=== PATIENT | male | born 1940 | race Caucasian/White ===

== ENCOUNTER 2018-10-05 14:53 | Inpatient (IN) ==
[2018-10-05] MEDS ORDERED: ZOFRAN IV PRN (16:12)
--- NOTE | 2018-10-05 16:16 | EKG Report ---
Test Performed on : 10/05/2018 4:10:36 PM Test Reason : Dehydration, Syncope Blood Pressure : / mmHG Vent. Rate : 054 BPM Atrial Rate : 054 BPM P-R Int : 186 ms QRS Dur : 090 ms QT Int : 408 ms P-R-T Axes : 034 070 081 degrees QTc Int : 386 ms Sinus bradycardia. Otherwise normal ECG No previous ECGs available Confirmed by Alix REARDON, Martín Horan ([id number]) on 10/05/2018 4:20:46 PM
[2018-10-05] MEDS: D5 NS + KCL 20 MEQ 1,000 ML IV SCH (16:49)
[2018-10-05] MEDS: ROCEPHIN 1 GM in NS 50 ML IV SCH (16:49)
[2018-10-05 17:11] LABS: BASO# 0.03 X1000 (0.0-0.2); BASO% 0.4 % (0.0-0.8); EOS# 0.57 X1000 (0.0-0.7); EOS% 8.1 % (0.0-10.0); HEMATOCRIT 41.6 % (42.0-52.0); HEMOGLOBIN 13.8 g/dL (14.0-18.0); LYMPH# 2.14 X1000 (1.2-3.4); LYMPH% 30.6 % (20.5-51.1); MCH 29.6 PG (27-31); MCHC 33.2 g/dL (33-37); MCV 89.3 FL (81-99); MONO# 0.82 X1000 (0.11-0.59); MONO% 11.7 % (1.7-9.3); MPV 10.7 FL (7.4-10.4); NEUT# 3.44 X1000 (1.4-6.5); NEUT% 49.2 % (42.2-75.2); PLT 201 X1000 (130-400); RBC 4.66 XMIL (4.7-6.1); RDW 14.9 % (11.5-14.5)
[2018-10-05 17:25] LABS: ALLEN TEST YES; BLOOD TYPE ARTERIAL; HCO3-(ACT) 25.6 mmoll (20.0-26.0); O2(CT) 17.7 mL/dL (15.0-23.0); PCO2(98.6) 45 mmHg (35-45); PO2(98.6) 77 mmHg (60-100); SAMPLE BLOOD; SAO2 100.2 % (95.0-100.0); THB 13.2 g/dL (11.5-17.4); pH(98.6) 7.38 (7.35-7.45)
[2018-10-05 17:28] LABS: MODALITY ROOM AIR
[2018-10-05 17:38] LABS: ALB/GLOB RATIO 1.3; ALBUMIN 4.1 g/dL (3.5-5.0); CALCIUM 9.6 mg/dL (8.8-10.2); CREATININE 1.3 mg/dL (0.7-1.2); POTASSIUM 4.5 mmol/L (3.5-5.1); TOTAL BILIRUBIN 0.34 mg/dL (0.20-1.00); TOTAL PROTEIN 7.2 g/dL (6.3-8.3)
--- NOTE | 2018-10-05 18:05 | Diag Imaging Result Doc PS360 ---
CHEST-2 VIEWS - 10/05/2018 INDICATION: Dehydration, Syncope COMPARISON: 02/01/2018 FINDINGS: There is some subtle reticulonodular infiltrate in the anterior right upper lobe. No pneumothorax or pleural effusion. Heart size is normal. IMPRESSION: Atypical pneumonia in the right upper lobe. Electronically signed by Keenan Stroud 10/05/2018 6:03 PM
[2018-10-05] MEDS: NORCO-7.5 PO PRN (22:35)
[2018-10-06] MEDS: D5 NS + KCL 20 MEQ 1,000 ML IV SCH ×3 (06:12→18:41)
--- NOTE | 2018-10-06 12:20 | PROGRESS NOTE ---
DATE: 10/06/2018 SUBJECTIVE: Mr. Piper is doing somewhat better. This morning his dehydration is better. His lungs reveal some congestion especially on the right side. He has a atypical pneumonia on the right apex. He is very weak today. Overall condition is stable. We will continue the current management. cc: Storm Black MD
--- NOTE | 2018-10-06 14:17 | HISTORY AND PHYSICAL ---
HISTORY OF PRESENT ILLNESS: Mr. Piper who is a 78-year-old white gentleman, comes to the office with extreme degree of weakness, persistent cough, and low-grade fever. He was dehydrated. According to the daughter, he was so weak that he stayed in the car for several hours without informing anyone and could not get out of the car. He was admitted with the diagnosis of dehydration, possible pneumonia. He has a known case of COPD, has been a chronic smoker for many years. He smokes about 3 to 5 cigarettes per day now. Besides this he has severe degenerative disk disease in the lumbar spine as well as cervical spine. Has history of hypertension. 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 He had 3 back surgeries in the lumbar area. Besides this he had TURP, appendectomy done. SOCIAL HISTORY: Mr. Piper does not drink. He smokes as mentioned. ALLERGIES: He is allergic to aspirin. REVIEW OF SYSTEMS: He is very weak. He has a loss of appetite, mild nausea. No diarrhea. Mild cough without chest pain. Some shortness of breath. PHYSICAL EXAMINATION: Patient is alert, very weak. VITAL SIGNS: Reveal temperature normal, pulse 63 per minute, respiratory rate 13 per minute, blood pressure 117/64. HEENT: Head normocephalic. Pupils PERRLA. Fundus examination on examination not done. NECK: Supple. JVP normal. ENT: Examination unremarkable. 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 There is no evidence of lymphadenopathy, thyroid enlargement, pedal edema, calf tenderness, anemia, cyanosis or clubbing. Pedal pulses feeble. He has bruising on his extremities and has some dehydration with loss of skin turgor and dryness of mucous membranes. BREASTS: Breast exam normal. CHEST: Normal inspection. LUNGS: Revealed rales in the mid zone on both sides. PMI in the normal position. HEART: Sounds normal. No murmur, gallop or rub noted. ABDOMEN: Nondistended hernial orifices normal. Revealed the scar from previous surgery. No guarding, rigidity, free fluid, masses, or organomegaly. Bowel sounds normal. RECTAL: Deferred. DIGITAL MEDIA INTERN: Higher functions normal. Cranial nerves normal. Motor and sensory system examination reveals muscle wasting.Deep tendon reflexes are sluggish. Plantars downgoing. Skull and spine examination normal for age. No cerebellar signs or signs of meningeal irritation. LOCOMOTOR SYSTEM AND SKIN: Exam unremarkable. IMPRESSION: 1. Dehydration. 2. Possible pneumonia. 3. Generalized malnutrition. 4. Persistent nausea. PLAN: We will start the IV fluids, get the appropriate lab work and get IV antibiotics started. cc: Storm Black MD MTDD
[2018-10-06] MEDS: ROCEPHIN 1 GM in NS 50 ML IV SCH (16:38)
[2018-10-07] MEDS: D5 NS + KCL 20 MEQ 1,000 ML IV SCH ×3 (03:05→16:36)
[2018-10-07] MEDS: NORCO-7.5 PO PRN ×2 (13:11→20:50)
[2018-10-07] MEDS ORDERED: SODIUM CHLORIDE 0.9% INJ SCH (15:15)
[2018-10-07] MEDS: ROCEPHIN 1 GM in NS 50 ML IV SCH (16:37)
[2018-10-07] MEDS: LOVENOX SUBQ SCH (16:37)
[2018-10-07] MEDS: PEPCID IV SCH (16:37)
[2018-10-07] MEDS: ZITHROMAX 500 MG/NS 500 MG/250 ML IVPB IV SCH (16:38)
--- NOTE | 2018-10-07 17:01 | PROGRESS NOTE ---
DATE: 10/07/2018 SUBJECTIVE: This is the progress note for Dr. Blcak. A 78-year-old white gentleman admitted to the hospital on 10/06/2018 for dehydration, COPD exacerbation, malnutrition. The patient is doing very well. No complaints. REVIEW OF SYSTEMS: None reported. PAST MEDICAL HISTORY: Reviewed. PAST SURGICAL HISTORY: Reviewed. MEDICATIONS: Reviewed. ALLERGIES: Aspirin. PHYSICAL EXAMINATION: General: He is temperature is 97.6, pulse is 73, blood pressure 128/72. 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 Neck: Supple. Chest: Barrel-shaped. Poor air entry. No wheezing. No crackles. Heart: Sounds are regular. Abdomen: Belly is soft, nontender. Extremities: No peripheral edema. Neurologic: No obvious deficits noted. INVESTIGATIONS: CBC: White cell count 7, hematocrit 41, platelets 201,000. ABG: pH is 7.38, pCO2 45, PO2 77, carboxyhemoglobin is 5.2. SMA-7 Sodium 136, BUN 20, creatinine 1.3. Liver function test was normal. EKG sinus bradycardia. Chest x-ray, atypical pneumonia in the right upper lobe with COPD changes. ASSESSMENT AND PLAN: 1. Acute chronic obstructive pulmonary disease exacerbation. Oxygen. Reconcile home medicines. Currently, he is getting IV ceftriaxone. We will add Zithromax. 2. Dehydration, better. Decrease IV fluids 80 mL/hour. Repeat the labs in the morning. 3. Deep venous thrombosis and gastrointestinal prophylaxis as per order sheet, and repeat the labs in the morning. LEVEL OF DOCUMENTATION: 35 minutes. cc: MD Storm Ramsey MD
[2018-10-07] MEDS: REQUIP PO SCH (21:00)
[2018-10-08] MEDS: D5 NS + KCL 20 MEQ 1,000 ML IV SCH ×3 (03:00→17:13)
[2018-10-08] MEDS: PEPCID IV SCH ×2 (03:34→15:39)
[2018-10-08] MEDS: REQUIP PO SCH ×2 (05:33→20:46)
[2018-10-08] MEDS: NORCO-7.5 PO PRN ×2 (05:55→15:14)
[2018-10-08 07:11] LABS: BASO# 0.02 X1000 (0.0-0.2); BASO% 0.3 % (0.0-0.8); EOS# 0.52 X1000 (0.0-0.7); EOS% 8.8 % (0.0-10.0); HEMATOCRIT 35.1 % (42.0-52.0); HEMOGLOBIN 11.9 g/dL (14.0-18.0); LYMPH# 2.18 X1000 (1.2-3.4); LYMPH% 36.8 % (20.5-51.1); MCHC 33.9 g/dL (33-37); MCV 88.4 FL (81-99); MONO# 0.81 X1000 (0.11-0.59); MONO% 13.7 % (1.7-9.3); MPV 10.3 FL (7.4-10.4); NEUT# 2.39 X1000 (1.4-6.5); NEUT% 40.4 % (42.2-75.2); PLT 163 X1000 (130-400); RBC 3.97 XMIL (4.7-6.1); RDW 14.6 % (11.5-14.5); WBC 5.92 X1000 (4.8-10.8)
[2018-10-08 07:28] LABS: CALCIUM 8.3 mg/dL (8.8-10.2); CREATININE 1.2 mg/dL (0.7-1.2); POTASSIUM 4.5 mmol/L (3.5-5.1)
[2018-10-08] MEDS: ZITHROMAX 500 MG/NS 500 MG/250 ML IVPB IV SCH (15:15)
[2018-10-08] MEDS: LOVENOX SUBQ SCH (15:39)
--- NOTE | 2018-10-08 17:02 | PROGRESS NOTE ---
DATE: 10/08/2018 SUBJECTIVE: The patient is doing very well, anxious to go home. Admitted for COPD. The chest x- ray showed atypical pneumonia. No chest pain. REVIEW OF SYSTEMS: None reported. 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 He is not in respiratory distress. Scattered wheezing. Distant heart sounds. Belly is soft. Nonfocal. DIAGNOSTIC STUDIES: CBC: White cell count 5.9, hematocrit 35, platelets 163,000. Sodium 140, potassium 4.5, chloride 111, BUN 14, creatinine 1.2, glucose is 93. Blood cultures are negative. ASSESSMENT AND PLAN: 1. Chronic obstructive pulmonary disease exacerbation with atypical pneumonia in the right side. Continue IV ceftriaxone and Zithromax. 2. Intravenous fluids. 3. Deep vein thrombosis and gastrointestinal prophylaxes. 4. Reconcile home medications. 5. Repeat the chest x-ray in the morning. 6. Continue present treatment and followup LEVEL OF DOCUMENTATION: 25 minutes. cc: MD Storm Ramsey MD
[2018-10-08] MEDS: ROCEPHIN 1 GM in NS 50 ML IV SCH (18:23)
[2018-10-09] MEDS: D5 NS + KCL 20 MEQ 1,000 ML IV SCH ×2 (04:07→16:35)
[2018-10-09] MEDS: PEPCID IV SCH ×2 (04:07→15:45)
[2018-10-09] MEDS: NORCO-7.5 PO PRN ×2 (06:12→20:55)
[2018-10-09 08:01] LABS: BASO# 0.03 X1000 (0.0-0.2); BASO% 0.4 % (0.0-0.8); EOS# 0.59 X1000 (0.0-0.7); EOS% 8.3 % (0.0-10.0); HEMATOCRIT 38.6 % (42.0-52.0); HEMOGLOBIN 12.9 g/dL (14.0-18.0); LYMPH# 2.01 X1000 (1.2-3.4); LYMPH% 28.2 % (20.5-51.1); MCH 29.3 PG (27-31); MCHC 33.4 g/dL (33-37); MCV 87.7 FL (81-99); MONO# 0.81 X1000 (0.11-0.59); MONO% 11.4 % (1.7-9.3); MPV 10.6 FL (7.4-10.4); NEUT# 3.69 X1000 (1.4-6.5); NEUT% 51.7 % (42.2-75.2); PLT 171 X1000 (130-400); RDW 14.3 % (11.5-14.5); WBC 7.13 X1000 (4.8-10.8)
--- NOTE | 2018-10-09 09:10 | PROGRESS NOTE ---
DATE: 10/09/2018 SUBJECTIVE: Mr. Piper is improving. His pulmonary congestion is better. He had a chest x-ray done today. He is on IV Rocephin and azithromycin. Will continue with the current management. cc: Storm Black MD
--- NOTE | 2018-10-09 09:45 | Diag Imaging Result Doc PS360 ---
EXAM: CHEST-2 VIEWS HISTORY: hypoxia TECHNIQUE: Chest two views. Exam completed at 9:40 AM COMPARISON: 10/05/2018 FINDINGS: The lungs are hyperexpanded. No cardiomegaly. The pulmonary vessels are small. No pleural effusions. Mild increased interstitial markings in the mid right lung. No consolidation. IMPRESSION: Stable chest. Electronically signed by Polo Palencia 10/09/2018 9:42 AM
[2018-10-09] MEDS: LOVENOX SUBQ SCH (15:39)
[2018-10-09] MEDS: ZITHROMAX 500 MG/NS 500 MG/250 ML IVPB IV SCH (15:45)
[2018-10-09] MEDS: ROCEPHIN 1 GM in NS 50 ML IV SCH (16:35)
[2018-10-09] MEDS: REQUIP PO SCH (20:55)
[2018-10-10] MEDS: PEPCID IV SCH (02:34)
[2018-10-10] MEDS: D5 NS + KCL 20 MEQ 1,000 ML IV SCH (06:05)
[2018-10-10 07:32] LABS: BASO# 0.02 X1000 (0.0-0.2); BASO% 0.3 % (0.0-0.8); EOS# 0.47 X1000 (0.0-0.7); HEMATOCRIT 37.6 % (42.0-52.0); HEMOGLOBIN 12.7 g/dL (14.0-18.0); IMM GRAN# 0.02 X1000 (0.0-0.04); IMM GRAN% 0.3 % (0.0-0.5); LYMPH# 2.29 X1000 (1.2-3.4); MCH 29.5 PG (27-31); MCHC 33.8 g/dL (33-37); MCV 87.2 FL (81-99); MONO# 0.95 X1000 (0.11-0.59); MONO% 14.1 % (1.7-9.3); MPV 10.3 FL (7.4-10.4); NEUT# 2.99 X1000 (1.4-6.5); NEUT% 44.3 % (42.2-75.2); PLT 181 X1000 (130-400); RBC 4.31 XMIL (4.7-6.1); RDW 14.5 % (11.5-14.5); WBC 6.74 X1000 (4.8-10.8)
[2018-10-10] MEDS: NORCO-7.5 PO PRN (08:30)
[2018-10-10] MEDS: ZITHROMAX 500 MG/NS 500 MG/250 ML IVPB IV SCH (11:41)
[2018-10-10 11:45] VITALS: BP 141/72
[2018-10-10] MEDS: ROCEPHIN 1 GM in NS 50 ML IV SCH (13:22)
--- NOTE | 2018-10-12 15:03 | PROGRESS NOTE ---
DATE: 10/10/2018 SUBJECTIVE: Mr. Piper is feeling better. OBJECTIVE: Lungs sound much better. His vital signs are stable. ASSESSMENT: Overall condition is improving. Dehydration is better. Chest x-ray is unremarkable now, the pneumonia has cleared on the chest x-ray. PLAN: Will discharge him today. cc: Storm Black MD
--- NOTE | 2018-10-13 11:47 | DISCHARGE SUMMARY ---
ADMISSION DATE: 10/05/2018 DISCHARGE DATE: 10/10/2018 HISTORY OF PRESENT ILLNESS: Mr. Piper, who is a 78-year-old white gentleman, was admitted because of dehydration, possible pneumonia, generalized malnutrition. LABORATORY DATA: In the hospital, CBC was unremarkable. Hemoglobin was 13.8; however, with hydration, it went down to 12.7, indicating presence of anemia. Arterial blood gases revealed a PO2 77. Carboxyhemoglobin was 5.2. Chemistry profile revealed initial BUN was 20, repeat BUN 14, indicating presence of dehydration. COURSE IN THE HOSPITAL: Mr. Piper was initially treated with IV antibiotics, IV fluid hydration, was cleared up. Rocephin and azithromycin were given. He continued to do good. His pneumonia has cleared up. FINAL DIAGNOSES: 1. Pneumonia. 2. Dehydration. 3. Malnutrition. FOLLOWUP: I will see him in the office in about 7 days. cc: Storm Black MD
== END 2018-10-10 16:20 | disposition home health service (06) | DRG 640 ==
LOC: DIRADM 14:53 → 3N 15:29
PROVIDERS: ADMIT Internal Medicine; ATTEND Internal Medicine
CPT/HCPCS: 71020; 71046; 80048; 80053; 82805; 85025; 87040; 93005; 93010; A9270; J0456; J0696; J1650; J7042; S0028